=== PATIENT | male | born 2000 | race Caucasian/White ===

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

== ENCOUNTER 2018-09-26 05:55 | Inpatient (IN) ==
[2018-09-26 06:25] LABS: Appearance Urine Clear (Clear); Bilirubin Urine Negative (Negative); Blood Urine Negative (Negative); Color Urine Yellow; Glucose Urine UA Negative (Negative); Ketones Urine Negative (Negative); Leukocyte Esterase Urine Negative (Negative); Nitrite Urine Negative (Negative); Protein Urine Negative (Negative); Specific Gravity Urine 1.017 (1.000-1.030); Urobilinogen Urine Negative (Negative); pH Urine 5.5 (4.5-7.5)
[2018-09-26 06:34] LABS: Basophils # (auto) 0.02 K/uL (0-0.2); Basophils % (auto) 0.2 %; Eosinophils # (auto) 0.05 K/uL (0-0.5); Eosinophils % (auto) 0.5 %; Hematocrit (blood only) 42.4 % (42-52); Hemoglobin 15.1 g/dL (14.0-18.0); Immature Granulocytes # (auto) 0.04 K/uL (0.00-0.02); Immature Granulocytes % (auto) 0.4 %; Lymphocytes # (auto) 0.95 K/uL (1.2-3.4); Lymphocytes % (auto) 9.7 %; Mean Corpuscular Hgb Conc 35.6 g/dL (32-36); Mean Corpuscular Volume 84.6 fL (80-100); Monocytes # (auto) 1.06 K/uL (0.11-0.59); Monocytes % (auto) 10.8 %; Neutrophils # (auto) 7.68 K/uL (1.4-6.5); Neutrophils % (auto) 78.4 %; Platelet Count 202 K/uL (130-400); RDW Standard Deviation 40.1 fL (36.4-46.3); Red Blood Count 5.01 M/uL (4.7-6.1)
[2018-09-26 06:43] LABS: Amphetamines+Metham, Urine Neg (Neg); Barbiturates, Urine Neg (Neg); Benzodiazepine, Urine Neg (Neg); Cocaine, Urine Neg (Neg); MDMA (Ecstacy), Urine Neg (Neg); Methadone, Urine Neg (Neg); Opiate, Urine Neg (Neg); Phencyclidine, Urine Neg (Neg)
[2018-09-26 06:53] LABS: BUN Creatinine Ratio 15.5 (10-20); Calcium 8.7 mg/dl (8.5-10.1); Creatinine Clr Calc Pharmacy 139.6 ml/min; Est GFR (African American) 138.3; Est GFR (Non-African American) 119.3; Potassium 3.8 mmol/L (3.5-5.1)
[2018-09-26 07:03] LABS: Acetaminophen < 2 ug/ml (10-30); Albumin Globulin Ratio 1.1 (0.9-2); Bilirubin,Total 0.4 mg/dl (0.2-1); Globulin 3.5 gm/dl (2.5-4.0); Salicylate < 1.7 mg/dl (2.8-20); Total Protein 7.5 gm/dl (6.4-8.2)
[2018-09-26] MEDS ORDERED: MAGNESIUM HYDROXIDE SUSP 30 ML UDC PO PRN (10:07)
[2018-09-26] MEDS ORDERED: ALUMINUM/MAGNESIUM SUSP 30 ML UDC PO PRN (10:07)
[2018-09-26] MEDS ORDERED: BISMUTH SUBSALICYLATE PER ML OMNICELL CHARGE PO PRN (10:07)
[2018-09-26] MEDS ORDERED: ACETAMINOPHEN 325 MG TAB PO PRN (10:07)
[2018-09-26] MEDS ORDERED: SODIUM CHLORIDE 0.65% NA SOLN 45 ML (OCEAN) PRN (10:07)
--- NOTE | 2018-09-26 10:38 | Emergency Department Note ---
Entered by Jhoana Paris acting as a scribe for Nannette Hartman MD History of Present Illness General Chief complaint: Mental Health Evaluation Stated complaint: MENTAL HEALTH EVALUATION Source: patient History of Present Illness Onset (ago): day(s) (this morning) Location: head Pain Consistency: + other (episode) Maximum Pain Intensity: 0 Quality: + other (suicidal ideation) Associated symptoms: + denies other symptoms (homicidal ideation) The patient is a 18 year old male who presents to the Emergency Room with complaints of an episode of suicidal ideation that started today. He states that he thought about killing himself this morning and called crisis services because he was scared of himself. He reports that he was considering cutting himself or overdosing on pills, but he denies attempting to do either. He notes that he was outside pacing when the police picked him up to bring him to the hospital. He states that he has had suicidal thoughts in the past and was hospitalized in [facility] one year ago during the spring at [facility]. He denies drinking any alcohol or using any substances last night. He states he is taking Lexapro 15 mg and is followed by a psychiatrist for regular care. He reports that he is from [place] and that his parents do not know he is currently at the Emergency Room. He denies any homicidal ideation. Home Medications Home Medications Medication Instructions Recorded Confirmed Type escitalopram oxalate [Lexapro] 15 mg PO DAILY 09/26/18 09/26/18 History Allergies Allergy/AdvReac Type Severity Reaction Status Date / Time No Known Allergies Allergy Unverified 09/26/18 06:01 Past Med/Surg History Medical History Exercise-induced asthma Family History Other No significant family history Social History marital status: Single Current Living Situation: Alone current occupational status: student Feels Safe at Home: Yes Smoking Status: Never smoker Review of Systems See HPI for pertinent positives & negatives. and A total of 10 systems reviewed and were otherwise negative Physical Exam Vital Signs Vital Signs - 24 hr 09/26/18 05:55 09/26/18 07:36 09/26/18 09:25 Temperature 36.8 C Temperature Source Oral Sepsis Recent Fever Within 48 Hours No Sepsis New/Unexplained Change in Mental Status No Sepsis Action Taken by Nursing No Action Required Pulse Rate 109 H Pulse Rate [Left Finger] 102 H 80 Pulse Rhythm Regular Pulse Strength Normal Respiratory Rate 18 18 15 Respiratory Effort / Characteristics Non-Labored Respiratory Depth Normal Blood Pressure 147/76 H Blood Pressure [Left Arm] 117/65 115/79 Blood Pressure Mean 99 Blood Pressure Mean [Left Arm] 82 91 Blood Pressure Position Lying Blood Pressure Position [Left Arm] Lying Lying Pulse Oximetry 94 98 98 Oxygen Delivery Method Room Air Room Air Room Air Vital signs reviewed. General: Well-appearing, in no significant distress. HEENT: No scleral icterus, PERRLA, neck supple. Atraumatic. Cardiovascular: Regular rate and rhythm, no extra sounds. Pulmonary: Clear to auscultation bilaterally, normal work of breathing. Abdomen: Soft, nontender, nondistended, positive bowel sounds. Musculoskeletal: Atraumatic, no peripheral edema. Neurologic: Patient awake alert and oriented x 3, full strength in all 4 extrem ities. Cranial nerves 2 through 12 grossly intact. Psych: Positive suicidal ideation, negative homicidal ideation Skin: Warm, dry, no rash Course 0653: The patient was evaluated in room A07, and a complete history and physical examination were performed. 1026: I discussed today's findings with the patient. He verbally agreed to the treatment plan. The patient will be voluntarily admitted for further evaluation and treatment. Medical Decision Making Differential Diagnosis Differential diagnosis: Etiologies such as mood disorder, infection, hypoglycemia, electrolyte ab normalities, cardiac sources, intracerebral event, toxicologic, neurologic, as well as others were entertained. Medical Records Attestation: I reviewed the patient's medical records. Home Medications Current Medication List: was personally reviewed by me Laboratory Data Attestation: I reviewed the patient's lab results. Result diagrams: 09/26/18 06:23 09/26/18 06:23 Lab Results 09/26/18 09/26/18 09/26/18 Range/Units 06:11 06:11 06:23 WBC 9.80 (4.8-10.8) K/uL RBC 5.01 (4.7-6.1) M/uL Hgb 15.1 (14.0-18.0) g/dL Hct 42.4 (42-52) % MCV 84.6 (80-100) fL MCH 30.1 (25-34) pg MCHC 35.6 (32-36) g/dL RDW Std Deviation 40.1 (36.4-46.3) fL RDW Coeff of Lino 13.0 (11.5-14.5) % Plt Count 202 (130-400) K/uL MPV 10.0 (7.4-10.4) fL Immature Gran % (Auto) 0.4 % Neut % (Auto) 78.4 % Lymph % (Auto) 9.7 % Lanier % (Auto) 10.8 % Eos % (Auto) 0.5 % Baso % (Auto) 0.2 % Immature Gran # (Auto) 0.04 H (0.00-0.02) K/uL Neut # (Auto) 7.68 H (1.4-6.5) K/uL Lymph # (Auto) 0.95 L (1.2-3.4) K/uL Lanier # (Auto) 1.06 H (0.11-0.59) K/uL Eos # (Auto) 0.05 (0-0.5) K/uL Baso # (Auto) 0.02 (0-0.2) K/uL Sodium (136-145) mmol/L Potassium (3.5-5.1) mmol/L Chloride (98-107) mmol/L Carbon Dioxide (21-32) mmol/L Anion Gap (3-11) BUN (7-18) mg/dl Creatinine (0.6-1.4) mg/dl Est Cr Clr Drug Dosing ml/min Est GFR ( Amer) Est GFR (Non-Af Amer) BUN/Creatinine Ratio (10-20) Glucose (70-99) mg/dl Calcium (8.5-10.1) mg/dl Total Bilirubin (0.2-1) mg/dl AST (15-37) U/L ALT (12-78) U/L Alkaline Phosphatase (45-117) U/L Total Protein (6.4-8.2) gm/dl Albumin (3.4-5.0) gm/dl Globulin (2.5-4.0) gm/dl Albumin/Globulin Ratio (0.9-2) TSH (0.300-4.500) uIu/ml Urine Color Yellow Urine Appearance Clear (Clear) Urine pH 5.5 (4.5-7.5) Ur Specific Colmar 1.017 (1.000-1.030) Urine Protein Negative (Negative) Urine Glucose (UA) Negative (Negative) Urine Ketones Negative (Negative) Urine Blood Negative (Negative) Urine Nitrite Negative (Negative) Urine Bilirubin Negative (Negative) Urine Urobilinogen Negative (Negative) Ur Leukocyte Esterase Negative (Negative) Salicylates (2.8-20) mg/dl Urine Opiates Screen Neg (Neg) Ur Methadone, Qual Neg (Neg) Acetaminophen (10-30) ug/ml Urine Barbiturates Neg (Neg) Ur Phencyclidine (PCP) Neg (Neg) U Amphetamin/Meth Scrn Neg (Neg) MDMA (Ecstasy) Screen Neg (Neg) U Benzodiazepines Scrn Neg (Neg) Ur Cocaine Metabolite Neg (Neg) U Marijuana (THC) Screen Neg (Neg) Ethyl Alcohol mg/dL (0-3) mg/dl 09/26/18 09/26/18 09/26/18 Range/Units 06:23 06:23 06:23 WBC (4.8-10.8) K/uL RBC (4.7-6.1) M/uL Hgb (14.0-18.0) g/dL Hct (42-52) % MCV (80-100) fL MCH (25-34) pg MCHC (32-36) g/dL RDW Std Deviation (36.4-46.3) fL RDW Coeff of Lino (11.5-14.5) % Plt Count (130-400) K/uL MPV (7.4-10.4) fL Immature Gran % (Auto) % Neut % (Auto) % Lymph % (Auto) % Lanier % (Auto) % Eos % (Auto) % Baso % (Auto) % Immature Gran # (Auto) (0.00-0.02) K/uL Neut # (Auto) (1.4-6.5) K/uL Lymph # (Auto) (1.2-3.4) K/uL Lanier # (Auto) (0.11-0.59) K/uL Eos # (Auto) (0-0.5) K/uL Baso # (Auto) (0-0.2) K/uL Sodium 139 (136-145) mmol/L Potassium 3.8 (3.5-5.1) mmol/L Chloride 106 (98-107) mmol/L Carbon Dioxide 27 (21-32) mmol/L Anion Gap 6.0 (3-11) BUN 14 (7-18) mg/dl Creatinine 0.92 (0.6-1.4) mg/dl Est Cr Clr Drug Dosing 139.6 ml/min Est GFR ( Amer) 138.3 Est GFR (Non-Af Amer) 119.3 BUN/Creatinine Ratio 15.5 (10-20) Glucose 98 (70-99) mg/dl Calcium 8.7 (8.5-10.1) mg/dl Total Bilirubin 0.4 (0.2-1) mg/dl AST 27 (15-37) U/L ALT 31 (12-78) U/L Alkaline Phosphatase 64 (45-117) U/L Total Protein 7.5 (6.4-8.2) gm/dl Albumin 4.0 (3.4-5.0) gm/dl Globulin 3.5 (2.5-4.0) gm/dl Albumin/Globulin Ratio 1.1 (0.9-2) TSH 1.630 (0.300-4.500) uIu/ml Urine Color Urine Appearance (Clear) Urine pH (4.5-7.5) Ur Specific Colmar (1.000-1.030) Urine Protein (Negative) Urine Glucose (UA) (Negative) Urine Ketones (Negative) Urine Blood (Negative) Urine Nitrite (Negative) Urine Bilirubin (Negative) Urine Urobilinogen (Negative) Ur Leukocyte Esterase (Negative) Salicylates < 1.7 L (2.8-20) mg/dl Urine Opiates Screen (Neg) Ur Methadone, Qual (Neg) Acetaminophen < 2 L (10-30) ug/ml Urine Barbiturates (Neg) Ur Phencyclidine (PCP) (Neg) U Amphetamin/Meth Scrn (Neg) MDMA (Ecstasy) Screen (Neg) U Benzodiazepines Scrn (Neg) Ur Cocaine Metabolite (Neg) U Marijuana (THC) Screen (Neg) Ethyl Alcohol mg/dL < 3.0 (0-3) mg/dl Blood Pressure Blood Pressure Findings: Normal blood pressure MDM Narrative This patient was evaluated and appeared to be in no significant distress. Patient was medically cleared and evaluated by the mental health vocational case manager. Referral was made to [facility] for inpatient treatment on a voluntary basis. Patient was accepted for further treatment. He is aware of the plan and agrees. Impression & Plan Suicidal ideation Discharge Plan Visit Data *Final* Discharge Date/Time: 09/26/18 09:53 Chief Complaint: Mental Health Evaluation Stated Complaint: MENTAL HEALTH EVALUATION ED Provider: Nannette Hartman Discharge Problem: Suicidal ideation Patient Disposition: Admitted As Inpatient Discharge Instructions Interventions: ED Discharge Assessment Last Done: 09/26/18 09:53 The scribe's documentation has been prepared under my direction and personally reviewed by me in its entirety. I confirm that the note above accurately re flects all work, treatment, procedures, and medical decision making performed by me.
[2018-09-26] MEDS: ESCITALOPRAM OXALATE 20 MG TAB PO SCH (15:43)
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
[2018-09-27] MEDS: ESCITALOPRAM OXALATE 20 MG TAB PO SCH (08:39)
--- NOTE | 2018-09-27 11:43 | Psychiatric Progress Note ---
Date of Service September 27, 2018 Impression / Recommendations Moraima Faria is a 18 yo male with recurrent major depression, multiple vegetative symptoms despite compliance with Lexapro to which he's traditionally had a positive response. He has a history of 2 prior suicidal gestures and was writing letters. His Lexapro was increased on admission and sleep is improved on Vistaril. (1) Major depression, recurrent: 09/26 The patient was admitted to the [facility] ([facility] health unit) on q15 min checks (behavioral with suicide precautions) for safety. The patient will participate in group, recreational, and milieu therapies and will be offered additional individual and family sessions as clinically appropriate. Risks/benefits/alternatives reviewed re: current medication, agreed to increase Lexapro to 20 mg. He had been using melatonin for sleep in the past and would like to work to reset sleep/wake cycle while hospitalized so better able to attend classes post discharge. Offered scheduled Vistaril. 09/27 needs family meeting Inventory Assets Strengths: intelligent, family oriented Needs: local therapist though will be returning home to [place] for summer. Risk Factors Assessment Male: Yes Do You Have Access To A Gun?: No Mental Health Diagnoses: Yes Substance Use Disorders: No Previous Attempt: Yes Hopelessness: No Protective Factors Assessment Employed: No Supportive Family: Yes Interval History Chief Complaint "I slept well, my friends were in". Review of Systems Sleep Information Total Hours of Sleep: 6 Meal Information Percent Meal Consumed - Breakfast: 100 Percent Meal Consumed - Lunch: 100 Percent Meal Consumed - Dinner: 100 Nutrition Comment: per meal record Subjective Subjective Patient was seen & assessed and interval progress reviewed with Nursing and social work job titles. adjusted to unit routines. [place] Vistaril was extremely helpful for sleep, up once to the bathroom but was able to fall right back to sleep. Denies medication side effects. Fewer suicidal thoughts yesterday. Physical Exam Psychiatric Orientation: alert and oriented x 3 Apperance: appropriately dressed and appropriately groomed Eye Contact: + fair eye contact Motor Behavior: steady gait and station and no abnormal motor movements Speech: normal rate/rhythm/volume of speech Affect: + depressed affect and + tearful affect Mood: + depressed mood Thought Process: goal directed thought process Thought Content: + worthlessness Homicidal Thoughts: denies homicidal thoughts Hallucinations: no auditory hallucinations and no visual hallucinations Cognition: language grossly intact; + attention not intact Estimated Intelligence: consistent with education level Insight: + limited insight Judgement: + limited judgement Vital Signs (Past 24 Hours) Last Vital Signs Temp 37.2 C 09/27/18 07:02 Pulse 79 09/27/18 07:04 Resp 16 09/27/18 07:02 BP 122/69 09/27/18 07:04 Pulse Ox 98 09/26/18 09:25 Results & Data Current Inpatient Medications Current Inpatient Medications: Current Inpatient Medications Acetaminophen (Tylenol) 650 mg PO Q4H PRN PRN Reason: Headache or Minor Fever Stop: 10/26/18 10:06 Al Hydrox/Mg Hydrox/Simethicone (Maalox) 30 ml PO Q4H PRN PRN Reason: GI Upset Stop: 10/26/18 10:06 Bismuth Subsalicylate (Kaopectate) 15 ml PO PRN PRN PRN Reason: Loose Stool Stop: 10/26/18 10:06 Escitalopram Oxalate (Lexapro) 20 mg PO QAM DAYO Stop: 10/26/18 12:59 Last Admin: 09/27/18 08:39 Dose: 20 mg Documented by: Hydroxyzine HCl (Vistaril) 25 mg PO Q4H PRN PRN Reason: Anxiety Stop: 10/26/18 10:06 Hydroxyzine HCl (Vistaril) 50 mg PO HSZ PRN PRN Reason: Insomnia Stop: 10/26/18 10:06 Hydroxyzine HCl (Vistaril) 50 mg PO HS DAYO Stop: 10/26/18 21:59 Last Admin: 09/26/18 21:41 Dose: 50 mg Documented by: Magnesium Hydroxide (Milk Of Magnesia) 30 ml PO DAILY PRN PRN Reason: Heartburn Stop: 10/26/18 10:06 Sodium Chloride ([place] Nasal) 1 - 2 sprays NA PRN PRN PRN Reason: Nasal Dryness/Congestion Stop: 10/26/18 10:06 Post Discharge Appointments Primary Care Physician Name Of Family Doctor: None Psychiatrist Date of Appointment with Psychiatrist: 10/05/18 Time of Appointment with Psychiatrist: 11:30 Therapist Name of Therapist: Dr. Abiola HUERTA Date of Therapist Appointment: 09/28/18 Educational Resource Center Teacher Name of Educational Resource Center Teacher: None CPT Code CPT Code 52329
[2018-09-28] MEDS: ESCITALOPRAM OXALATE 20 MG TAB PO SCH (08:49)
--- NOTE | 2018-09-28 11:05 | Psychiatric Progress Note ---
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 He has a history of 2 prior suicidal gestures and was writing letters,, and although he feels safe here in the hospital, remains at risk for suicide if discharged prematurely. life skills worker is referring him for therapy locally until he returns home to [place] for the summer. (1) Major depression, recurrent: 09/26 The patient was admitted to the [facility] ([facility] mental health unit) on q15 min checks (behavioral with suicide precautions) for safety. The patient will participate in group, recreational, and milieu therapies and will be offered additional individual and family sessions as clinically appropriate. Risks/benefits/alternatives reviewed re: current medication, agreed to increase Lexapro to 20 mg. He had been using melatonin for sleep in the past and would like to work to reset sleep/wake cycle while hospitalized so better able to attend classes post discharge. Offered scheduled Vistaril. 09/27 needs family meeting 09/28 -patient tolerating increased dose of escitalopram well and mood is improving. -scheduled family meeting with parents. -Coordinate with the [facility], and arrange follow-up with student care and advocacy. -Coordinate care with Michelle Cantu, nurse practitioner [facility], and refer for a therapist there. Coordinate care with his therapist and psychiatrist at home in [place]. Inventory Assets Strengths: intelligent, family oriented Needs: local therapist though will be returning home to [place] for summer. Risk Factors Assessment Male: Yes : No Do You Have Access To A Gun?: No Health Problems: No Mental Health Diagnoses: Yes Substance Use Disorders: No Previous Attempt: Yes Previous Attempt; Didn't Tell Anyone: Yes Family History of Suicide: No Previous Psychiatric Hospitalization: No Hopelessness: No Smoker: No Protective Factors Assessment Sabianist Beliefs: No : No Responsible for Young Children: No Employed: No Stable Relationships: Yes Supportive Family: Yes Good Rapport with Provider: Yes Interval History Chief Complaint "I realized I really need to be talking to my family and friends". Review of Systems Notes Nasal congestion Sleep Information Total Hours of Sleep: 7.5 Meal Information Percent Meal Consumed - Breakfast: 100 Percent Meal Consumed - Lunch: 100 Percent Meal Consumed - Dinner: 80 Nutrition Comment: per meal record Subjective Subjective Patient was seen & assessed and interval progress reviewed with Treatment Team. Staff report he is attending and participating in groups and therapy, and has been a good participant in discussions. He has been interacting appropriately with staff and peers, and contacted his parents to let them know he was in the hospital. On my assessment, the patient states he is realizing he has good support from family and friends, and that it really helps him to be able to talk to his family and friends, and that he hadn't been talking openly with them as he was worried it would overwhelm them. He now thinks it was making him feel worse to keep everything inside, and he feels relieved to have opened up about his struggles. He denies SI and feels safe here. He also reports improved sleep and thinks that has helped his mood improve. He is eating well and denies problems with appetite. He wants to work on "being more open" which he states is a long standing problem for him. He denies side effects to medication. He is planning to return home from the summer, and to resume care with his providers in [place] at that time. Physical Exam Mental Examination Well-nourished well-developed male appearing his stated age. Casually dressed, good hygiene and grooming, just showered. Calm, cooperative, and pleasant. Goo d eye contact, and no abnormal movements. Mood is "getting better," and affect is depressed but reactive, congruent, and appropriate. Speech is spontaneous, normal rate, volume, and tone. Thoughts are linear and goal-directed. Denies SI, HI, no hallucinations, paranoia, or delusions. Alert and oriented. Memory, attention, and language are grossly intact. Insight and judgment are good. Vital Signs (Past 24 Hours) Last Vital Signs Temp 36.9 C 09/28/18 06:56 Pulse 84 09/28/18 06:57 Resp 18 09/28/18 06:56 BP 121/76 09/28/18 06:57 Pulse Ox 98 09/26/18 09:25 Results & Data Current Inpatient Medications Current Inpatient Medications: Current Inpatient Medications Acetaminophen (Tylenol) 650 mg PO Q4H PRN PRN Reason: Headache or Minor Fever Stop: 10/26/18 10:06 Al Hydrox/Mg Hydrox/Simethicone (Maalox) 30 ml PO Q4H PRN PRN Reason: GI Upset Stop: 10/26/18 10:06 Bismuth Subsalicylate (Kaopectate) 15 ml PO PRN PRN PRN Reason: Loose Stool Stop: 10/26/18 10:06 Escitalopram Oxalate (Lexapro) 20 mg PO QAM DAYO Stop: 10/26/18 12:59 Last Admin: 09/28/18 08:49 Dose: 20 mg Documented by: Hydroxyzine HCl (Vistaril) 25 mg PO Q4H PRN PRN Reason: Anxiety Stop: 10/26/18 10:06 Hydroxyzine HCl (Vistaril) 50 mg PO HSZ PRN PRN Reason: Insomnia Stop: 10/26/18 10:06 Hydroxyzine HCl (Vistaril) 50 mg PO HS DAYO Stop: 10/26/18 21:59 Last Admin: 09/27/18 21:55 Dose: 50 mg Documented by: Magnesium Hydroxide (Milk Of Magnesia) 30 ml PO DAILY PRN PRN Reason: Heartburn Stop: 10/26/18 10:06 Sodium Chloride ([place] Nasal) 1 - 2 sprays NA PRN PRN PRN Reason: Nasal Dryness/Congestion Stop: 10/26/18 10:06 Post Discharge Appointments Primary Care Physician Name Of Family Doctor: [facility] - Follow up as needed Primary Care Provider Appointment Comment: [facility] [place], [place] [address] Psychiatrist Name of Psychiatrist: [facility] Cantu Psychiatrist'[place] Date of Appointment with Psychiatrist: 10/05/18 Time of Appointment with Psychiatrist: 9:00 a.m. Psychiatric Appointment Comment: [facility] Therapist Name of Therapist: Dr. Abiola HUERTA Date of Therapist Appointment: 09/28/18 Coding Specialist Home Health Name of Coding Specialist Home Health: None CPT Code CPT Code 10297
[2018-09-29] MEDS: ESCITALOPRAM OXALATE 20 MG TAB PO SCH (08:45)
--- NOTE | 2018-09-29 10:57 | Psychiatric Progress Note ---
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 He had a family meeting with his parents in [place] today, who are supportive, and social work associate is referring him for therapy locally until he returns home to [place] for the summer. (1) Major depression, recurrent: 09/26 The patient was admitted to the [facility] ([facility]) on q15 min checks (behavioral with suicide precautions) for safety. The patient will participate in group, recreational, and milieu therapies and will be offered additional individual and family sessions as clinically appropriate. Risks/benefits/alternatives reviewed re: current medication, agreed to increase Lexapro to 20 mg. He had been using melatonin for sleep in the past and would like to work to reset sleep/wake cycle while hospitalized so better able to attend classes post discharge. Offered scheduled Vistaril. 09/27 needs family meeting 09/28 -patient tolerating increased dose of escitalopram well and mood is improving. -scheduled family meeting with parents. -Coordinate with the University, and arrange follow-up with student care and advocacy. -Coordinate care with Michelle Cantu, nurse practitioner [facility], and refer for a therapist there. Coordinate care with his therapist and psychiatrist at home in [place]. 09/29 -family meeting held with parents. -Refer for therapy in the community. Inventory Assets Strengths: intelligent, family oriented Needs: local therapist though will be returning home to [place] for summer. Risk Factors Assessment Male: Yes : No Do You Have Access To A Gun?: No Health Problems: No Mental Health Diagnoses: Yes Substance Use Disorders: No Previous Attempt: Yes Previous Attempt; Didn't Tell Anyone: Yes Family History of Suicide: No Previous Psychiatric Hospitalization: No Hopelessness: No Smoker: No Protective Factors Assessment Taoism Beliefs: No : No Responsible for Young Children: No Employed: No Stable Relationships: Yes Supportive Family: Yes Good Rapport with Provider: Yes Interval History Identifying Information HEATHER BROWNING is a 18-year-old M, [employer] sophomore from [place] who currently lives with roommate, has a history of ED visit in 09/07 for cutting, and was admitted on 09/26/18 10:04 on a 201 voluntary commitment for SI with plan to cut or OD on pills. Chief Complaint "Pretty good". Review of Systems Sleep Information Total Hours of Sleep: 7 Sleep Comments: pt on q-15 minute checks Meal Information Percent Meal Consumed - Breakfast: 100 Percent Meal Consumed - Lunch: 100 Percent Meal Consumed - Dinner: 100 Nutrition Comment: per meal record Subjective Subjective Patient was seen & assessed and interval progress reviewed with Nursing and social work. Staff report he is attending and participating in groups, and had a meeting with his parents by phone this morning. They were supportive, discussed ways to improve communication, options for mental health treatment in the community, and barriers to treatment. The patient was able to discuss his difficulties communicating openly with others, including worrying that if he told him about his suicidal thoughts it would burden them. He reported benefit from treatment, and parents confirmed he did not have access to guns. On my assessment, the patient reports his mood continues to slowly improve, he feels treatment has been very helpful, and is working on ways he can continue to improve communication with others, as he has found it very helpful to be able to talk openly about his struggles. He is also thinking of ways to ensure he remains in treatment, including having his parents check up on him to make sure he is going to appointments. He denies suicidal thoughts and feels safe here, and is hopeful for discharge tomorrow. Physical Exam Psychiatric Orientation: alert, oriented x 3 and cooperative Apperance: appropriately dressed, appropriately groomed and appeared stated age Eye Contact: good eye contact Motor Behavior: steady gait and station and no abnormal motor movements Speech: normal rate/rhythm/volume of speech Affect: + depressed affect (But improved from yesterday, brighter) and + anxious affect "Getting better." Thought Process: linear/logical thought process Thought Content: reality based without delusions Suicidal Thoughts: denies suicidal thoughts Homicidal Thoughts: denies homicidal thoughts Hallucinations: no auditory hallucinations Cognition: recent memory grossly intact, attention grossly intact and language grossly intact Estimated Intelligence: consistent with education level Insight: good insight Judgement: good judgement Vital Signs (Past 24 Hours) Last Vital Signs Temp 36.4 C L 09/29/18 07:11 Pulse 76 09/29/18 07:11 Resp 16 09/29/18 07:11 BP 122/78 09/29/18 07:11 Pulse Ox 98 09/26/18 09:25 Results & Data Current Inpatient Medications Current Inpatient Medications: Current Inpatient Medications Acetaminophen (Tylenol) 650 mg PO Q4H PRN PRN Reason: Headache or Minor Fever Stop: 10/26/18 10:06 Al Hydrox/Mg Hydrox/Simethicone (Maalox) 30 ml PO Q4H PRN PRN Reason: GI Upset Stop: 10/26/18 10:06 Bismuth Subsalicylate (Kaopectate) 15 ml PO PRN PRN PRN Reason: Loose Stool Stop: 10/26/18 10:06 Escitalopram Oxalate (Lexapro) 20 mg PO QAM DAYO Stop: 10/26/18 12:59 Last Admin: 09/29/18 08:45 Dose: 20 mg Documented by: Hydroxyzine HCl (Vistaril) 25 mg PO Q4H PRN PRN Reason: Anxiety Stop: 10/26/18 10:06 Hydroxyzine HCl (Vistaril) 50 mg PO HSZ PRN PRN Reason: Insomnia Stop: 10/26/18 10:06 Hydroxyzine HCl (Vistaril) 50 mg PO HS DAYO Stop: 10/26/18 21:59 Last Admin: 09/28/18 21:16 Dose: 50 mg Documented by: Magnesium Hydroxide (Milk Of Magnesia) 30 ml PO DAILY PRN PRN Reason: Heartburn Stop: 10/26/18 10:06 Sodium Chloride ([place] Nasal) 1 - 2 sprays NA PRN PRN PRN Reason: Nasal Dryness/Congestion Stop: 10/26/18 10:06 Post Discharge Appointments Primary Care Physician Name Of Family Doctor: [facility] - Follow up as needed Primary Care Provider Appointment Comment: [place] [address] Psychiatrist Name of Psychiatrist: [facility] Cantu Psychiatrist's Date of Appointment with Psychiatrist: 10/05/18 Time of Appointment with Psychiatrist: 9:00 a.m. Psychiatric Appointment Comment: [facility] Therapist Name of Therapist: Dr. Abiola HUERTA Date of Therapist Appointment: 09/28/18 Welt Edge Rounder Name of Welt Edge Rounder: None CPT Code CPT Code 33023
[2018-09-30] MEDS: ESCITALOPRAM OXALATE 20 MG TAB PO SCH (09:10)
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
== END 2018-09-30 10:45 | disposition home or self-care (01) | DRG 885 ==
LOC: ED 05:55 → 3S 09:53 → SUATTDRO 10:04